=== PATIENT | female | born 1980 | race Caucasian/White ===

== ENCOUNTER 2018-09-11 15:43 | Emergency (ER) | payer BC ==
[~2018-09-11] VITALS: Ht 170.2 cm; Wt 95.3 kg
[~2018-09-11 15:43] MED LIST: ACETAMINOPHEN325 M1 PO; B-121000 MCG PO; BACTRIM DS TAB1 EACH PO; ENOXAPARIN100 MG/1 M SUBQ; FISH OIL 1,001000 M1 PO; FLONASE NS; FOLIC ACID0.4 MG PO; GARLIC200 MG PO; LEVAQUIN 500 M500 M2 PO; MIRALAX17 GM PO; NECON1 EAC4 PO; NOHOMEMEDICATIONS; NORCO 5-325 TA1 EACH PO; ORTHO-NOVUM1 EAC2; PREDNISONE 20 M20 MG PO; REGLAN 10 MG TA10 MG PO; ZOFRAN ODT4 MG PO
[2018-09-11] MEDS ORDERED: SYNTHROID25 MC1 PO (15:59)
[2018-09-11] MEDS ORDERED: NORFLEX100 MG PO (17:56)
[2018-09-11] MEDS ORDERED: MOBIC7.5 MG PO (17:56)
[2018-09-11 18:20] VITALS: BP 107/72
== END 2018-09-11 18:21 | disposition home or self-care (01) ==
LOC: ER 15:43
DX: G44.209 Tension-type headache, unspecified, not intractable (principal); J32.9 Chronic sinusitis, unspecified; Z85.71 Personal history of Hodgkin lymphoma; Z86.711 Personal history of pulmonary embolism